=== PATIENT | female | born 1945 | race Asian ===

== ENCOUNTER 2018-03-29 14:23 | Emergency (ER) | payer OTHER ==
[2018-03-29] MEDS: SODIUM CHLORIDE 0.9% 1L BAG IV* (15:31)
[2018-03-29] MEDS: IBUPROFEN 600 MG TAB PO (15:31)
[2018-03-29 15:32] LABS: ADD MAN DIFF? NO
[2018-03-29] MEDS: CEFTRIAXONE 1 GM/50 ML (PMX) 50 ML IVPB (15:32)
[2018-03-29 15:36] LABS: ABNORMAL IP MESSAGE 1; BASOPHILS % 0.3 % (0.0-2.0); HEMATOCRIT 36.5 % (37.0-47.0); HEMOGLOBIN 12.3 g/dl (12.0-16.0); LYMPHOCYTES # 0.7 10^3/ul (0.8-2.9); LYMPHOCYTES % 4.3 % (15.0-51.0); MEAN CORPUSCULAR HEMOGLOBIN 29.8 pg (29.0-33.0); MEAN CORPUSCULAR HGB CONC 33.7 g/dl (32.0-37.0); MEAN CORPUSCULAR VOLUME 88.4 fl (82.0-101.0); MEAN PLATELET VOLUME 8.7 fl (7.4-10.4); MONOCYTE # 1.8 10^3/ul (0.3-0.9); MONOCYTES % 11.4 % (0.0-11.0); NEUTROPHIL # 13.1 10^3/ul (1.6-7.5); NEUTROPHILS % 83.2 % (39.0-77.0); PLATELET COUNT 302 10^3/UL (140-415); RED BLOOD COUNT 4.13 10^6/ul (4.20-5.40)
[2018-03-29 15:36] LABS: WHITE BLOOD COUNT 15.7 10^3/ul (4.8-10.8)
[2018-03-29 15:42] LABS: POSITIVE DIFF @See below
[2018-03-29 15:58] LABS: LACTIC ACID 1.6 mmol/L (0.5-2.0)
[2018-03-29 15:59] LABS: INR 1.19; PROTIME 15.3 Sec (11.9-14.9); PT RATIO 1.2
[2018-03-29 16:01] LABS: ALANINE AMINOTRANSFERASE 38 IU/L (13-69); ALBUMIN 3.9 g/dl (3.3-4.9); ALBUMIN/GLOBULIN RATIO 1.02; ALKALINE PHOSPHATASE 110 IU/L (42-121); ANION GAP 14 (8-16); ASPARTATE AMINO TRANSFERASE 33 IU/L (15-46); BILIRUBIN,INDIRECT 1.1 mg/dl (0-1.1); BILIRUBIN,TOTAL 1.1 mg/dl (0.2-1.3); BLOOD UREA NITROGEN 12 mg/dl (7-20); CALCIUM 8.7 mg/dl (8.4-10.2); CARBON DIOXIDE 22 mmol/L (21-31); CHLORIDE 99 mmol/L (97-110); GLUCOSE 170 mg/dl (70-220); LIPASE 119 U/L (23-300); POTASSIUM 3.9 mmol/L (3.5-5.1); SODIUM 131 mmol/L (135-144); TOTAL PROTEIN 7.7 g/dl (6.1-8.1)
[2018-03-29 16:04] LABS: PARTIAL THROMBOPLASTIN TIME 34.9 Sec (25.0-35.0)
[2018-03-29 17:06] LABS: TROPONIN-I < 0.010 ng/ml (0.000-0.120)
[2018-03-29 17:56] LABS: ADD UMIC YES; UR ASCORBIC ACID NEGATIVE (NEGATIVE); UR BACTERIA FEW /HPF (NONE SEEN); UR BILIRUBIN (Dip) NEGATIVE (NEGATIVE); UR BLOOD (Dip) 2+ mg/dL (NEGATIVE); UR CLARITY CLOUDY (CLEAR); UR COLOR AMBER (YELLOW); UR GLUCOSE (Dip) NEGATIVE (NEGATIVE); UR KETONES (Dip) 1+ mg/dL (NEGATIVE); UR LEUKOCYTE ESTERASE (Dip) 3+ Leu/ul (NEGATIVE); UR MUCUS FEW /HPF (NONE SEEN); UR NITRITE (Dip) POSITIVE (NEGATIVE); UR RBC 20 /HPF (0-5); UR SPECIFIC GRAVITY (Dip) 1.017 (1.003-1.030); UR TOTAL PROTEIN (Dip) 2+ mg/dl (NEGATIVE); UR UROBILINOGEN (Dip) 1+ mg/dL (NEGATIVE); UR WBC > 182 /HPF (0-5)
== END 2018-03-29 18:36 | disposition home or self-care (01) ==
LOC: E/R 14:23
DX: N39.0 Urinary tract infection, site not specified (principal); I10 Essential (primary) hypertension; E11.9 Type 2 diabetes mellitus without complications; E66.9 Obesity, unspecified; R07.9 Chest pain, unspecified; Z68.31 Body mass index [BMI] 31.0-31.9, adult; Z79.84 Long term (current) use of oral hypoglycemic drugs
CPT/HCPCS: 36415; 71045; 80053; 81001; 83605; 83690; 84484; 85025; 85610; 85730; 87040; 87086; 93005; 96374; 99285-25

== ENCOUNTER 2018-04-01 16:12 | Inpatient (IN) | payer OTHER ==
[2018-04-01] MEDS: ACETAMINOPHEN 325 MG TAB PO (16:30)
[2018-04-01 17:13] LABS: ADD MAN DIFF? NO
[2018-04-01 17:19] LABS: WHITE BLOOD COUNT 8.6 10^3/ul (4.8-10.8)
[2018-04-01 17:19] LABS: BASOPHIL # 0.1 10^3/ul (0.0-0.1); BASOPHILS % 0.7 % (0.0-2.0); EOSINOPHILS # 0.1 10^3/ul (0.0-0.5); EOSINOPHILS % 0.6 % (0.0-7.0); HEMATOCRIT 34.1 % (37.0-47.0); HEMOGLOBIN 11.2 g/dl (12.0-16.0); LYMPHOCYTES # 0.8 10^3/ul (0.8-2.9); LYMPHOCYTES % 9.5 % (15.0-51.0); MEAN CORPUSCULAR HEMOGLOBIN 29.4 pg (29.0-33.0); MEAN CORPUSCULAR HGB CONC 32.8 g/dl (32.0-37.0); MEAN CORPUSCULAR VOLUME 89.5 fl (82.0-101.0); MEAN PLATELET VOLUME 8.4 fl (7.4-10.4); MONOCYTE # 0.7 10^3/ul (0.3-0.9); MONOCYTES % 7.6 % (0.0-11.0); NEUTROPHILS % 80.6 % (39.0-77.0); PLATELET COUNT 357 10^3/UL (140-415); RED BLOOD COUNT 3.81 10^6/ul (4.20-5.40); RED CELL DISTRIBUTION WIDTH 12.4 % (11.5-14.5)
[2018-04-01 17:26] LABS: POSITIVE DIFF @See below
[2018-04-01] MEDS ORDERED: ONDANSETRON 4 MG INJ IV ×2 (17:30→19:00)
[2018-04-01] MEDS: LEVOFLOXACIN 750 MG TABLET PO (17:30)
[2018-04-01] MEDS ORDERED: ACETAMINOPHEN 325 MG TAB PO ×2 (17:30→19:00)
[2018-04-01 17:42] LABS: ALANINE AMINOTRANSFERASE 50 IU/L (13-69); ALBUMIN 3.5 g/dl (3.3-4.9); ALBUMIN/GLOBULIN RATIO 0.97; ALKALINE PHOSPHATASE 150 IU/L (42-121); ANION GAP 11 (8-16); ASPARTATE AMINO TRANSFERASE 47 IU/L (15-46); BILIRUBIN,INDIRECT 0.1 mg/dl (0-1.1); BILIRUBIN,TOTAL 0.1 mg/dl (0.2-1.3); BLOOD UREA NITROGEN 10 mg/dl (7-20); CALCIUM 8.7 mg/dl (8.4-10.2); CARBON DIOXIDE 25 mmol/L (21-31); CHLORIDE 104 mmol/L (97-110); CREATININE 0.66 mg/dl (0.44-1.00); GLUCOSE 106 mg/dl (70-220); POTASSIUM 3.7 mmol/L (3.5-5.1); SODIUM 136 mmol/L (135-144); TOTAL PROTEIN 7.1 g/dl (6.1-8.1)
[2018-04-01 17:45] LABS: LACTIC ACID 1.1 mmol/L (0.5-2.0)
[2018-04-01 17:55] LABS: TROPONIN-I < 0.012 ng/ml (0.000-0.120)
[2018-04-01 17:59] LABS: BAND NEUTROPHILS #M 1.8 10^3/ul (0.0-0.6); BAND NEUTROPHILS % (M) 21 % (0-4); BASOPHIL #M 0.2 10^3/ul (0.0-0.0); BASOPHILS % (M) 3 % (0-2); EOSINOPHILS % (M) 3 % (0-7); LYMPHOCYTES #M 0.7 10^3/ul (0.8-2.9); LYMPHOCYTES % (M) 9 % (15-51); MONOCYTE #M 0.7 10^3/ul (0.3-0.9); MONOCYTES % (M) 9 % (0-11); PLASMAC%(M) 1 % (0); PLATELET ESTIMATE INCREASED; POIKILOCYTOSIS 1+ (0-0); SEG NEUT #M 4.8 10^3/ul (1.6-7.5); SEGMENTED NEUTROPHILS (M) % 54 % (39-77); SMUDGE%M 5 % (0-0)
[2018-04-01] MEDS: SOD CHLORIDE 0.9% 100 ML (18:09)
[2018-04-01] MEDS: IOHEXOL 300MG/ML 150 ML BTL (18:09)
[2018-04-01 18:16] LABS: INR 0.93; PARTIAL THROMBOPLASTIN TIME 38.6 Sec (25.0-35.0); PROTIME 12.6 Sec (11.9-14.9)
[2018-04-01 18:27] LABS: ADD UMIC YES; UR ASCORBIC ACID NEGATIVE (NEGATIVE); UR BILIRUBIN (Dip) NEGATIVE (NEGATIVE); UR BLOOD (Dip) 1+ mg/dL (NEGATIVE); UR CLARITY CLEAR (CLEAR); UR COLOR YELLOW (YELLOW); UR GLUCOSE (Dip) NEGATIVE (NEGATIVE); UR KETONES (Dip) NEGATIVE (NEGATIVE); UR LEUKOCYTE ESTERASE (Dip) 2+ Leu/ul (NEGATIVE); UR NITRITE (Dip) NEGATIVE (NEGATIVE); UR RBC 3 /HPF (0-5); UR SPECIFIC GRAVITY (Dip) 1.009 (1.003-1.030); UR TOTAL PROTEIN (Dip) NEGATIVE (NEGATIVE); UR UROBILINOGEN (Dip) NEGATIVE (NEGATIVE); UR WBC 32 /HPF (0-5)
[2018-04-01] MEDS: CEFTRIAXONE 1 GM/50 ML (PMX) 50 ML IVPB (18:32)
[2018-04-01] MEDS: SODIUM CHLORIDE 0.9% 1L BAG IV* (18:32)
[2018-04-01] MEDS: CIPROFLOXACIN 500 MG TAB NGT (18:47)
[2018-04-01] MEDS ORDERED: BISACODYL (EC) 5 MG TAB PO (19:00)
[2018-04-01] MEDS ORDERED: HYDROCODONE/APAP (5/325) TAB PO (19:00)
[2018-04-01] MEDS ORDERED: NA PHOSPHATE/BIPHOS 133 ML ENEMA PR (19:00)
[2018-04-01] MEDS ORDERED: BISACODYL 10 MG SUPP PR (19:00)
[2018-04-01] MEDS ORDERED: GLUCAGON 1 MG INJ IM (19:00)
[2018-04-01] MEDS ORDERED: MAGNESIUM HYDROXIDE 30ML CUP PO (19:00)
[2018-04-01] MEDS ORDERED: ONDANSETRON 4 MG TAB PO (19:00)
[2018-04-01] MEDS ORDERED: GLUCOSE GEL 15 GRAM TUBE BUCCAL (19:00)
[2018-04-01] MEDS ORDERED: DOCUSATE SODIUM 100 MG CAP PO (19:00)
[2018-04-01] MEDS ORDERED: KETOROLAC 30 MG INJ IV (19:00)
[2018-04-01] MEDS ORDERED: morphine 2 MG INJ IV (19:00)
[2018-04-01] MEDS ORDERED: NACL 0.9% 3 ML SYG IV (19:00)
[2018-04-01] MEDS ORDERED: DEXTROSE 50% 50 ML SYRINGE IV ×2 (19:00)
[2018-04-01] MEDS ORDERED: GLUCOSE GEL 15 GRAM TUBE PO ×2 (19:00)
[2018-04-01] MEDS ORDERED: IBUPROFEN 600 MG TAB PO (19:00)
[2018-04-01] MEDS ORDERED: METOCLOPRAMIDE 10 MG INJ IV (19:00)
[2018-04-01] MEDS ORDERED: KETOROLAC 15 MG INJ IV (19:30)
[2018-04-01 19:33] LABS: LACTIC ACID 1.6 mmol/L (0.5-2.0)
[2018-04-01] MEDS: INSULIN ASPART [NOVOLOG] 3 ML PEN SC (20:56)
[2018-04-01] MEDS: TAMSULOSIN (SR) 0.4 MG CAP PO (20:57)
[2018-04-01] MEDS: ATORVASTATIN 10 MG TAB PO (20:57)
[2018-04-01] MEDS: SOD CHLORIDE 0.9% 1,000 ML IV (20:58)
[2018-04-01] MEDS ORDERED: NON-FORMULARY/PATIENT OWN MED (Simvastatin* (Zocor*) 10 MG) PO (21:00)
[2018-04-01 22:27] LABS: LACTIC ACID 1.2 mmol/L (0.5-2.0)
[2018-04-02] MEDS: ACCU-CHEK XX (01:04)
[2018-04-02 05:46] LABS: WHITE BLOOD COUNT 6.4 10^3/ul (4.8-10.8)
[2018-04-02 05:46] LABS: HEMATOCRIT 29.9 % (37.0-47.0); HEMOGLOBIN 9.9 g/dl (12.0-16.0); MEAN CORPUSCULAR HEMOGLOBIN 29.4 pg (29.0-33.0); MEAN CORPUSCULAR HGB CONC 33.1 g/dl (32.0-37.0); MEAN CORPUSCULAR VOLUME 88.7 fl (82.0-101.0); MEAN PLATELET VOLUME 8.3 fl (7.4-10.4); PLATELET COUNT 320 10^3/UL (140-415); RED BLOOD COUNT 3.37 10^6/ul (4.20-5.40); RED CELL DISTRIBUTION WIDTH 12.3 % (11.5-14.5)
[2018-04-02] MEDS: SOD CHLORIDE 0.9% 1,000 ML IV ×2 (05:53→16:42)
[2018-04-02] MEDS: CIPROFLOXACIN 500 MG TAB NGT (05:53)
[2018-04-02] MEDS ORDERED: LEVOFLOXACIN 750 MG TABLET PO (06:00)
[2018-04-02 06:01] LABS: ADD MAN DIFF? YES; POSITIVE DIFF @See below
[2018-04-02 06:14] LABS: ANION GAP 8 (8-16); BLOOD UREA NITROGEN 7 mg/dl (7-20); CALCIUM 8.2 mg/dl (8.4-10.2); CARBON DIOXIDE 25 mmol/L (21-31); CHLORIDE 108 mmol/L (97-110); CREATININE 0.64 mg/dl (0.44-1.00); GLUCOSE 105 mg/dl (70-220); MAGNESIUM 1.5 mg/dl (1.7-2.5); PHOSPHORUS 4.1 mg/dl (2.5-4.9); POTASSIUM 3.4 mmol/L (3.5-5.1); SODIUM 138 mmol/L (135-144)
[2018-04-02 07:34] LABS: BAND NEUTROPHILS #M 0.6 10^3/ul (0.0-0.6); BAND NEUTROPHILS % (M) 10 % (0-4); BASOPHILS % (M) 1 % (0-2); ECHINOCYTOSIS 1+ (0-0); EOSINOPHILS % (M) 1 % (0-7); GIANT THROMBO% (M) 1 % (0-0); LYMPHOCYTES #M 0.7 10^3/ul (0.8-2.9); LYMPHOCYTES % (M) 12 % (15-51); METAMYELOCYTES %M 1 % (0-0); MONOCYTES % (M) 16 % (0-11); PLATELET ESTIMATE NORMAL; POIKILOCYTOSIS 1+ (0-0); POLYCHROMASIA 1+ (0-0); REACTIVE LYMPHOCYTES #M 0.1 10^3/ul (0.0-0.0); REACTIVE LYMPHOCYTES% (M) 2 % (0-0); SEG NEUT #M 3.7 10^3/ul (1.6-7.5); SEGMENTED NEUTROPHILS (M) % 57 % (39-77); SMUDGE%M 5 % (0-0)
[2018-04-02] MEDS: INSULIN ASPART [NOVOLOG] 3 ML PEN SC ×4 (08:00→21:00)
[2018-04-02] MEDS: MAGNESIUM OXIDE 400 MG TAB PO (08:17)
[2018-04-02] MEDS: POTASSIUM CHLORIDE (SR) 20 MEQ TAB PO (08:18)
[2018-04-02] MEDS: BENAZEPRIL 20 MG TAB PO (08:19)
[2018-04-02] MEDS: ENOXAPARIN 40 MG/0.4 ML SYG SC ×2 (08:20→09:00)
[2018-04-02] MEDS: ANASTROZOLE 1 MG TAB PO (09:32)
[2018-04-02] MEDS ORDERED: morphine LIQ (10 MG/5 ML) CUP PO (15:00)
[2018-04-02 15:01] LABS: HEMOGLOBIN A1C 6.4 % (0-5.9)
[2018-04-02] MEDS: CIPROFLOXACIN 500 MG TAB PO (17:10)
[2018-04-02] MEDS: ATORVASTATIN 10 MG TAB PO (20:11)
[2018-04-02] MEDS: TAMSULOSIN (SR) 0.4 MG CAP PO (20:11)
[2018-04-03] MEDS: ACCU-CHEK XX (02:00)
[2018-04-03] MEDS: SOD CHLORIDE 0.9% 1,000 ML IV ×3 (03:01→21:00)
[2018-04-03] MEDS: CIPROFLOXACIN 500 MG TAB PO ×2 (05:18→17:52)
[2018-04-03 06:30] LABS: ANION GAP 11 (8-16); BLOOD UREA NITROGEN 7 mg/dl (7-20); CALCIUM 8.4 mg/dl (8.4-10.2); CARBON DIOXIDE 26 mmol/L (21-31); CHLORIDE 108 mmol/L (97-110); CREATININE 0.62 mg/dl (0.44-1.00); GLUCOSE 190 mg/dl (70-220); POTASSIUM 3.5 mmol/L (3.5-5.1); SODIUM 141 mmol/L (135-144)
[2018-04-03] MEDS: INSULIN ASPART [NOVOLOG] 3 ML PEN SC ×4 (07:52→21:00)
[2018-04-03] MEDS: BENAZEPRIL 20 MG TAB PO (08:59)
[2018-04-03] MEDS: ENOXAPARIN 40 MG/0.4 ML SYG SC (09:00)
[2018-04-03] MEDS: ANASTROZOLE 1 MG TAB PO (09:17)
[2018-04-03] MEDS ORDERED: hydrALAzine 20 MG INJ IV (16:00)
[2018-04-03] MEDS ORDERED: PIPER-TAZO 3.375 GM IV (PMX) 100 ML (19:52)
[2018-04-03] MEDS ORDERED: ROCURONIUM 50 MG INJ (19:57)
[2018-04-03] MEDS ORDERED: NEOSTIGMINE 3 MG/3 ML SYRINGE (19:57)
[2018-04-03] MEDS ORDERED: PROPOFOL 20 ML (19:57)
[2018-04-03] MEDS ORDERED: GLYCOPYRROLATE 0.4 MG INJ (19:57)
[2018-04-03] MEDS ORDERED: CEFAZOLIN 1 GM INJ (19:57)
[2018-04-03] MEDS ORDERED: ONDANSETRON 4 MG INJ (19:58)
[2018-04-03] MEDS ORDERED: FENTAnyl 50 MCG/ML VIAL (19:58)
[2018-04-03] MEDS ORDERED: DEXAMETHASONE 4 MG/ML 1 ML INJ (19:58)
[2018-04-03] MEDS ORDERED: MIDAZOLAM 1 MG/ML 2 ML INJ (19:58)
[2018-04-03] MEDS ORDERED: IOHEXOL 300MG/ML 30 ML BTL (20:10)
[2018-04-03] MEDS ORDERED: LABETALOL HCL 20MG INJ (20:11)
[2018-04-03] MEDS: LIDOCAINE 2% 20 ML UROJET SYRINGE (20:40)
[2018-04-03] MEDS ORDERED: hydrALAzine 20 MG INJ (20:55)
[2018-04-03] MEDS: ATORVASTATIN 10 MG TAB PO (21:00)
[2018-04-03] MEDS: TAMSULOSIN (SR) 0.4 MG CAP PO (21:00)
[2018-04-03] MEDS ORDERED: SUGAMMADEX SODIUM 200 MG/2 ML VIAL IV (21:22)
[2018-04-04] MEDS: ACCU-CHEK XX (02:00)
[2018-04-04 05:51] LABS: ADD MAN DIFF? NO
[2018-04-04 05:59] LABS: ABNORMAL IP MESSAGE 1; BASOPHILS % 0.4 % (0.0-2.0); HEMATOCRIT 34.8 % (37.0-47.0); HEMOGLOBIN 11.7 g/dl (12.0-16.0); LYMPHOCYTES # 0.5 10^3/ul (0.8-2.9); LYMPHOCYTES % 5.3 % (15.0-51.0); MEAN CORPUSCULAR HEMOGLOBIN 29.8 pg (29.0-33.0); MEAN CORPUSCULAR HGB CONC 33.6 g/dl (32.0-37.0); MEAN CORPUSCULAR VOLUME 88.5 fl (82.0-101.0); MEAN PLATELET VOLUME 8.3 fl (7.4-10.4); MONOCYTE # 0.2 10^3/ul (0.3-0.9); MONOCYTES % 1.8 % (0.0-11.0); NEUTROPHIL # 9.1 10^3/ul (1.6-7.5); NEUTROPHILS % 91.3 % (39.0-77.0); PLATELET COUNT 403 10^3/UL (140-415); RED BLOOD COUNT 3.93 10^6/ul (4.20-5.40); RED CELL DISTRIBUTION WIDTH 12.1 % (11.5-14.5)
[2018-04-04] MEDS: CIPROFLOXACIN 500 MG TAB PO ×2 (06:00→17:25)
[2018-04-04 06:37] LABS: ANION GAP 11 (8-16); BLOOD UREA NITROGEN 9 mg/dl (7-20); CALCIUM 8.4 mg/dl (8.4-10.2); CARBON DIOXIDE 24 mmol/L (21-31); CHLORIDE 109 mmol/L (97-110); CREATININE 0.54 mg/dl (0.44-1.00); GLUCOSE 163 mg/dl (70-220); POTASSIUM 3.5 mmol/L (3.5-5.1); SODIUM 140 mmol/L (135-144)
[2018-04-04 06:57] LABS: POSITIVE DIFF @See below
[2018-04-04] MEDS: INSULIN ASPART [NOVOLOG] 3 ML PEN SC ×4 (08:00→23:00)
[2018-04-04] MEDS: ANASTROZOLE 1 MG TAB PO (08:31)
[2018-04-04] MEDS: ENOXAPARIN 40 MG/0.4 ML SYG SC (08:32)
[2018-04-04] MEDS: BENAZEPRIL 20 MG TAB PO (08:33)
[2018-04-04] MEDS: POTASSIUM CHLORIDE (SR) 20 MEQ TAB PO (16:24)
[2018-04-04] MEDS: TAMSULOSIN (SR) 0.4 MG CAP PO (21:05)
[2018-04-04] MEDS: ATORVASTATIN 10 MG TAB PO (21:05)
[2018-04-05] MEDS: ACCU-CHEK XX (02:00)
[2018-04-05] MEDS: CIPROFLOXACIN 500 MG TAB PO ×2 (05:53→16:07)
[2018-04-05 06:06] LABS: ADD MAN DIFF? NO; BASOPHILS % 0.3 % (0.0-2.0); EOSINOPHILS # 0.1 10^3/ul (0.0-0.5); EOSINOPHILS % 0.7 % (0.0-7.0); HEMATOCRIT 31.7 % (37.0-47.0); HEMOGLOBIN 10.4 g/dl (12.0-16.0); LYMPHOCYTES # 1.7 10^3/ul (0.8-2.9); MEAN CORPUSCULAR HEMOGLOBIN 29.5 pg (29.0-33.0); MEAN CORPUSCULAR HGB CONC 32.8 g/dl (32.0-37.0); MEAN CORPUSCULAR VOLUME 89.8 fl (82.0-101.0); MEAN PLATELET VOLUME 8.4 fl (7.4-10.4); MONOCYTE # 0.9 10^3/ul (0.3-0.9); MONOCYTES % 8.7 % (0.0-11.0); NEUTROPHIL # 7.8 10^3/ul (1.6-7.5); NEUTROPHILS % 73.4 % (39.0-77.0); PLATELET COUNT 381 10^3/UL (140-415); RED BLOOD COUNT 3.53 10^6/ul (4.20-5.40); RED CELL DISTRIBUTION WIDTH 12.6 % (11.5-14.5)
[2018-04-05 06:06] LABS: WHITE BLOOD COUNT 10.7 10^3/ul (4.8-10.8)
[2018-04-05 06:43] LABS: ANION GAP 10 (8-16); BLOOD UREA NITROGEN 12 mg/dl (7-20); CALCIUM 8.4 mg/dl (8.4-10.2); CARBON DIOXIDE 27 mmol/L (21-31); CHLORIDE 107 mmol/L (97-110); CREATININE 0.66 mg/dl (0.44-1.00); GLUCOSE 121 mg/dl (70-220); SODIUM 140 mmol/L (135-144)
[2018-04-05] MEDS: INSULIN ASPART [NOVOLOG] 3 ML PEN SC ×2 (08:00→12:00)
[2018-04-05] MEDS: ANASTROZOLE 1 MG TAB PO (09:25)
[2018-04-05] MEDS: BENAZEPRIL 20 MG TAB PO (09:25)
[2018-04-05] MEDS: ENOXAPARIN 40 MG/0.4 ML SYG SC (09:26)
== END 2018-04-05 16:30 | disposition home or self-care (01) | DRG 691 ==
LOC: E/R 16:12 → PP2 17:21
PROC: 0TF6XZZ Fragmentation in Right Ureter, External Approach (ICD-10-PCS; principal; 2018-04-03 19:30)
PROC: 0T768DZ Dilation of Right Ureter with Intraluminal Device, Via Natural or Artificial Opening Endoscopic (ICD-10-PCS; 2018-04-03 19:30)
DX: N20.1 Calculus of ureter (principal); N12 Tubulo-interstitial nephritis, not specified as acute or chronic; C50.911 Malignant neoplasm of unspecified site of right female breast; E11.9 Type 2 diabetes mellitus without complications; I10 Essential (primary) hypertension; E78.00 Pure hypercholesterolemia, unspecified; Z79.811 Long term (current) use of aromatase inhibitors; Z79.84 Long term (current) use of oral hypoglycemic drugs; Z92.3 Personal history of irradiation
CPT/HCPCS: 36415; 71045; 74018; 74178; 74430; 80048; 80053; 81001; 82962; 83036; 83605; 83735; 84100; 84484; 85025; 85610; 85730; 87040; 87086; 93005; 96374; 99285-25